=== PATIENT | male | born 2000 | race Caucasian/White ===

== ENCOUNTER 2018-10-14 16:36 | Emergency (ER) | payer SELFPAY ==
[~2018-10-14] VITALS: Ht 170.2 cm; Wt 72.2 kg
[2018-10-14 16:42] VITALS: BP 133/74; Ht 170.2 cm; Wt 72.2 kg
[2018-10-14] MEDS ORDERED: ALBUTEROL 0.083% (NEB) 2.5 MG/3 ML AMP HHN STA ×2 (17:19→18:30)
[2018-10-14] MEDS ORDERED: METHYLPREDNISOLONE 125 MG INJ IM ONE (17:30)
[2018-10-14] MEDS ORDERED: IPRATROPIUM (NEB) 0.5 MG/2.5 ML AMP HHN ONE (18:30)
[2018-10-14] MEDS ORDERED: PRED20TA PO (18:59)
[2018-10-14] MEDS ORDERED: ALBU18HF INHALATION (18:59)
--- NOTE | 2018-10-14 19:01 | ERD ---
ER Documentation Chief Complaint Chief Complaint SOB AND WHEEZING TODAY; RAN OUT OF INHALER HPI 17-year-old male presents with cough and wheezing since today. He has a history of asthma. He is out of his Ventolin inhaler. He has an allergy to cats. He does own 2 cats. Denies any fevers, chest pain, vomiting, abdominal pain. ROS All systems reviewed and are negative except as per history of present illness. Medications Home Meds Active Scripts Albuterol Sulfate* (Ventolin HFA*) 18 Gm Hfa.aer.ad, 2 PUFF INHALATION Q4H, #1 INHALER Prov:VICTOR MANUEL MEADE MD 10/14/18 Prednisone* (Prednisone*) 20 Mg Tab, 60 MG PO DAILY for 4 Days, TAB Prov:VICTOR MANUEL MEADE MD 10/14/18 Allergies Allergies: Coded Allergies: No Known Allergy (Unverified , 10/14/18) PMhx/Soc Medical and Surgical Hx: pt denies Medical Hx, pt denies Surgical Hx History of Surgery: No Anesthesia Reaction: No Hx Neurological Disorder: No Hx Respiratory Disorders: No Hx Cardiac Disorders: No Hx Psychiatric Problems: No Hx Miscellaneous Medical Probl: No Hx Alcohol Use: No Hx Substance Use: No Hx Tobacco Use: No Smoking Status: Never smoker FmHx Family History: No diabetes, No coronary disease, No other Physical Exam Vitals Vital Signs Date Temp Pulse Resp B/P (MAP) Pulse Ox O2 O2 Flow FiO2 Time Delivery Rate 10/14/18 120 14 95 Room Air 19:13 10/14/18 86 20 95 21 18:42 10/14/18 86 20 94 21 17:52 10/14/18 98.3 81 18 133/74 94 16:42 (93) Physical Exam Const: No acute distress Head: Atraumatic Eyes: Normal Conjunctiva ENT: Normal External Ears, Nose and Mouth. TMs and oropharynx normal. Neck: Full range of motion. No meningismus. Resp: Clear to auscultation bilaterally diffuse wheezing without rales or retractions. Cardio: Regular rate and rhythm, no murmurs Abd: Soft, non tender, non distended. Normal bowel sounds Skin: No petechiae or rashes Back: No midline or flank tenderness Ext: No cyanosis, or edema Neur: Awake and alert Psych: Normal Mood and Affect Results 24 hrs Current Medications Medications Dose Sig/Robert Start Time Status Last (Trade) Ordered Route PRN Stop Time Admin Dose Reason Admin 125 mg ONCE ONCE 10/14/18 DC 10/14/18 Methylprednis IM 17:30 10/14/18 17:44 olone Sodium 17:31 Succinate (Solu-Medrol) Albuterol 5 mg ONCE STAT 10/14/18 DC 10/14/18 (Proventil HHN 17:19 10/14/18 17:50 0.083% (Neb)) 17:21 Albuterol 5 mg ONCE STAT 10/14/18 DC 10/14/18 (Proventil HHN 18:30 10/14/18 18:40 0.083% (Neb)) 18:32 Ipratropium 0.5 mg ONCE ONCE 10/14/18 DC 10/14/18 [place] HHN 18:30 10/14/18 18:40 (Atrovent 18:32 0.02% (Neb)) Procedures/MDM Patient presents with an asthma exacerbation without signs of hypoxemia, respiratory distress. He has no complaints of chest pain, abdominal pain, vomiting. He was given albuterol treatment x2, Solu-Medrol 125 mg IM. Patient had improved breath sounds without rales, retractions on serial exam. He has no evidence of hypoxemia after observation treatment. Will be treated with a refill of his Ventolin, short course of prednisone, primary care follow-up and return precautions. The patient was stable with no new complaints during the ER course. Clinically, there is no current evidence to suggest meningitis, sepsis, acute abdomen, pneumonia, stroke, acute coronary syndrome, pulmonary embolism, aortic dissection or any other emergent condition appearing to require further evaluation or hospitalization. Patient counseled regarding my diagnostic impression and care plan. Prior to discharge all questions answered. Pt agrees with treatment plan and understands strict return precautions. Pt is instructed to follow up with primary care provider within 24-48 hours. Precautionary instructions provided including instructions to return to the ER if not improving or for any worsening or changing symptoms or concerns. Departure Diagnosis: Primary Impression: Wheezing Condition: Stable Patient Instructions: Asthma Additional Instructions: Recheck for new or worsening symptoms with primary care doctor. VICTOR MANUEL MEADE MD Oct 14, 2018 19:01
[2018-10-14 19:13] VITALS: PULSE 120; RESP 14
== END 2018-10-14 19:13 | disposition home or self-care (01) ==
LOC: FTE 16:36
DX: J45.901 Unspecified asthma with (acute) exacerbation (principal)
CPT/HCPCS: 94640; 94664; 96372; 99284; J2930

== ENCOUNTER 2019-04-19 07:53 | Emergency (ER) | payer BC ==
[~2019-04-19] VITALS: Ht 170.2 cm; Wt 74.8 kg
[~2019-04-19 07:53] MED LIST: ALBU18HF INHALATION; PRED20TA PO
[2019-04-19 07:54] VITALS: BP 134/64; Ht 170.2 cm; Wt 74.8 kg
[2019-04-19] MEDS ORDERED: ALBUTEROL 0.083% (NEB) 2.5 MG/3 ML AMP HHN STA ×2 (08:18→09:13)
[2019-04-19] MEDS ORDERED: DEXAMETHASONE 10 MG/ML 1 ML INJ IM ONE (08:30)
[2019-04-19] MEDS ORDERED: IPRATROPIUM (NEB) 0.5 MG/2.5 ML AMP HHN ONE ×2 (08:30→09:30)
[2019-04-19] MEDS ORDERED: ALBUTEROL/IPRATROPIUM (NEB) 3 ML AMP HHN STA (09:20)
[2019-04-19] MEDS ORDERED: PRED20TA PO (10:33)
[2019-04-19] MEDS ORDERED: ALBU8.5H8 INH (10:33)
[2019-04-19 10:45] VITALS: PULSE 98; RESP 18
--- NOTE | 2019-04-20 06:58 | ERD ---
ER Documentation Chief Complaint Chief Complaint SOB, COUGH, HX OF ASTHMA HPI 18-year-old male presenting with shortness of breath cough and history of asthma. Patient states that started last night he has had a dry but sometimes productive cough. He has no fevers and has no inhaler at home. Has not been using medications. Medical history is asthma. NKDA. Surgical history denies. Social history denies ROS All systems reviewed and are negative except as per history of present illness. Medications Home Meds Active Scripts Prednisone* (Prednisone*) 20 Mg Tab, 40 MG PO DAILY for 4 Days, TAB Prov:MIGUEL SILVA PA-C 04/19/19 Albuterol Sulfate* (Proair HFA*) 8.5 Gm Hfa.aer.ad, 2 PUFF INH Q4, #1 INHALER Prov:MIGUEL SILVA PA-C 04/19/19 Albuterol Sulfate* (Ventolin HFA*) 18 Gm Hfa.aer.ad, 2 PUFF INHALATION Q4H, #1 INHALER Prov:VICTOR MANUEL MEADE MD 10/14/18 Prednisone* (Prednisone*) 20 Mg Tab, 60 MG PO DAILY for 4 Days, TAB Prov:VICTOR MANUEL MEADE MD 10/14/18 Allergies Allergies: Coded Allergies: No Known Allergy (Unverified , 10/14/18) PMhx/Soc Medical and Surgical Hx: pt denies Medical Hx, pt denies Surgical Hx History of Surgery: No Anesthesia Reaction: No Hx Neurological Disorder: No Hx Respiratory Disorders: No Hx Cardiac Disorders: No Hx Psychiatric Problems: No Hx Miscellaneous Medical Probl: No Hx Alcohol Use: No Hx Substance Use: No Hx Tobacco Use: Yes Smoking Status: Former smoker FmHx Family History: No diabetes, No coronary disease, No other Physical Exam Vitals Vital Signs Date Temp Pulse Resp B/P (MAP) Pulse Ox O2 O2 Flow FiO2 Time Delivery Rate 04/19/19 98 18 97 Room Air 10:45 04/19/19 80 24 96 21 09:37 04/19/19 22 68 96 21 08:32 04/19/19 97.4 67 20 134/64 98 07:54 (87) Physical Exam GENERAL: The patient is well-appearing, well-nourished, in no acute distress HEENT: Atraumatic. Conjunctivae are pink. Pupils equal, round, and reactive to light. There is no scleral icterus. Tympanic membranes clear bilaterally. Oropharynx clear. NECK: C-spine is soft and supple. There is no meningismus. There is no cervic al lymphadenopathy. CHEST: Diffuse wheezing heard on auscultation. No focal rhonchi. HEART: Regular rate and rhythm. No murmurs, clicks, rubs or gallops. Results 24 hrs Current Medications Medications Dose Sig/Robert Start Time Status Last (Trade) Ordered Route PRN Stop Time Admin Dose Reason Admin Albuterol 5 mg ONCE STAT 04/19/19 DC 04/19/19 (Proventil HHN 08:18 08:31 0.083% (Neb)) 04/19/19 08:21 Ipratropium 0.5 mg ONCE ONCE 04/19/19 DC 04/19/19 [place] HHN 08:30 08:32 (Atrovent 04/19/19 08:31 0.02% (Neb)) 10 mg ONCE ONCE 04/19/19 DC 04/19/19 Dexamethasone IM 08:30 08:26 (Decadron) 04/19/19 09:21 Albuterol 10 mg ONCE STAT 04/19/19 DC (Proventil HHN 09:13 0.083% (Neb)) 04/19/19 09:14 Ipratropium 1 mg ONCE ONCE 04/19/19 DC [place] HHN 09:30 (Atrovent 04/19/19 09:30 0.02% (Neb)) Albuterol/ 10 ml ONCE STAT 04/19/19 DC 04/19/19 Ipratropium HHN 09:20 09:54 (Duoneb) 04/19/19 09:56 Procedures/MDM ER course: Albuterol and Atrovent breathing treatment with Decadron given ED. On reevaluation patient's symptoms had improved however additional treatment was given. MDM: 18-year-old male presenting with asthma and shortness of breath. I have low suspicion for respiratory distress or hypoxia. I have low suspicion for pneumonia. Patient is discharged with strict ER precautions and told to follow- up with primary care within 1 to 2 days for close evaluation. Patient is told if symptoms change or worsen to return immediately to the ER. All questions answered at discharge Departure Diagnosis: Primary Impression: Asthma Condition: Stable Patient Instructions: Asthma, Acute (Adult) Referrals: [facility] YOU HAVE RECEIVED A MEDICAL SCREENING EXAM AND THE RESULTS INDICATE THAT YOU DO NOT HAVE A CONDITION THAT REQUIRES URGENT TREATMENT IN THE EMERGENCY DEPARTMENT. FURTHER EVALUATION AND TREATMENT OF YOUR CONDITION CAN WAIT UNTIL YOU ARE SEEN IN YOUR DOCTORS OFFICE WITHIN THE NEXT 1-2 DAYS. IT IS YOUR RESPONSIBILITY TO MAKE AN APPOINTMENT FOR FOLOW-UP CARE. IF YOU HAVE A PRIMARY DOCTOR --you should call your primary doctor and schedule an appointment IF YOU DO NOT HAVE A PRIMARY DOCTOR YOU CAN CALL OUR PHYSICIAN REFERRAL HOTLINE AT IF YOU CAN NOT AFFORD TO SEE A PHYSICIAN YOU CAN CHOSE FROM THE FOLLOWING [facility] [address] [facility]. [facility] [address] [facility] [facility] [address] [facility] [facility] [address] [facility]. [facility] [address] [facility] [facility] [address] Additional Instructions: FOLLOW UP WITH YOUR PRIMARY CARE PHYSICIAN TOMORROW.Return to this facility if you are not improving as expected. MIGUEL SILVA PA-C Apr 20, 2019 06:58
== END 2019-04-19 10:46 | disposition home or self-care (01) ==
LOC: FTE 07:53
DX: J45.901 Unspecified asthma with (acute) exacerbation (principal); Z87.891 Personal history of nicotine dependence
CPT/HCPCS: 94640; 94664; 96372; J1100; Z7502; Z7610